=== PATIENT | female | born 1970 | race Caucasian/White ===

== ENCOUNTER 2024-09-17 10:26 | Day surgery (SDC) | payer OTHER, SELFPAY ==
[2024-09-16 08:28] VITALS: BMI 24.9
[2024-09-17] VITALS (13 sets, daily range): BP systolic 112–159; BP diastolic 69–92; BMI 25.0
[2024-09-17 13:54] LABS: ACT-LR - POC 285 Seconds (116-155)
[2024-09-17 14:13] LABS: ACT-LR - POC 351 Seconds (116-155)
--- NOTE | 2024-09-17 14:27 | ITS.CL.ABL ---
Addendum entered and electronically signed by Salvatore Abraham MD 09/18/24 10:08:
Date of procedure was September 17, 2024
Original Note:
Slot Operations Director - Ablation
Ablation
Procedure Report:
ELECTROPHYSIOLOGY ABLATION STUDY
DATE:: September 18, 2024�����������������������������REFERRING:
INDICATION: Paroxysmal supraventricular tachycardia in the form of atrial fibrillation.� Refractory to flecainide
HISTORY: See H and P.� As above
ANTIARRHYTHMIC DRUG: Flecainide
PRE-PROCEDURE JAIRON: No intracardiac thrombus on intracardiac ultrasound
PRESENTING RHYTHM: Spontaneous paroxysmal atrial fibrillation from the left pulmonary vein jaden with majority sinus rhythm
'TIME-OUT':��called and confirmed.
SEDATION/ANESTHESIA:��provided via the anesthesia department using general anesthesia (LMA).
INTRAVENOUS/ARTERIAL ACCESS:
Right femoral venous - 8Fr
Left femoral venous - 8 Fr, 6 Fr
Ultrasound guidance for bilateral femoral vein access was utilized by me to obtain access with demonstration of normal anatomy
CHADS-VASC Score:
HAS-Bled Score
PROCEDURE:
1.��A decapolar CS catheter was placed within the CS for mapping and pacing.��This was also used as the reference catheter for the 3-D map.
2. The intracardiac ultrasound catheter was positioned in the RA to identify the FO for targeting of transseptal puncture, assist��in identification of the pulmonary vein ostia, monitoring pre and post ablation pulmonary vein flow velocities,
monitoring for 'bubble' formation during RF application as a sign of thermal injury,��and to monitor for pericardial effusion during mapping and ablation procedure.���Left atrial size, LV ejection fraction, and pulmonary vein flows were monitored
pre and post ablation procedure. The other valves were inspected and found to be free of significant regurgitation or stenosis.
3.��Half of the calculated heparin bolus was administered prior to the first transeptal puncture.��Transseptal puncture was performed to diagnose RA and LA pressure so that safety of LA mapping and ablation could be further assessed, and to access
the left atrium and pulmonary veins for mapping and ablation.��This entailed advancing an 17 Spanish wire sheath dilator system sheath with dilator into the superior vena cava and withdrawing both (monitoring intracardiac ultrasound, fluoroscopy and
tip pressure) with the tip oriented toward the atrial septum.��The fossa ovalis was engaged (indicated by sudden displacement of the sheath tip as well as tenting of the fossa seen on intracardiac ultrasound).��Left atrial access required a pass
with the [place] needle extended.��Left atrial catheter position was confirmed by pressure monitoring (RA mean pressure 8 mm Hg and LA mean presure 14 mm Hg), LA saturation (99%),��as well as fluoroscopy.��The sheath was advanced over the
dilator and positioned in the left atrium.��The remainder of the calculated heparin bolus was administered and heparin was
infused to maintain ACT at 300 -350 seconds throughout the case.
4.��RA pacing was performed via the proximal decapolar poles and LA pacing was performed via the distal decapolr poles.
5. A quadrapolar catheter was first positioned at the His position for His Bundle recording which was tagged via the 3-D Navex sytem, and then passed to the RVA for RV pacing and recording.
6. The multipolar catheter and the PFA catheter placed in each of the LIPV, LSPV, RSPV and the RIPV.��Large left common ostium with a recessed and distal jaden
7.��Next, a 3-D map was created using Navex.���A 3-D reconstructed CT image was compared to the 3-D Navex map to assist in anatomic interpretation, mapping and ablation.��The CT image and the NavX image were fused.
8. 51 lesions were given in the [place] and basket poses to the common ostium of the left and individual rights and flower poses to the roof posterior wall and floor of the left atrium. This rendered the pulmonary veins isolated left atrial
posterior wall isolated. No further atrial fibrillation was noted and we gave additional lesions to the posterior jaden of the left common ostium which was the trigger location for atrial fibrillation.
9. Normal sinus node and AV tonja function noted.
TOTAL FLOURO TIME: 14.2 minutes 41.9 mGy
TOTAL RF DURATION: 0 minutes
REVERSAL OF HEPARIN: 35 mg of protamine, slow IV administration
COMPLICATIONS:
None
Intracardiac US shows no pericardial effusion post ablation.
SUMMARY:��
Complex left atrial mapping and ablation.
Isolation of left atrial posterior wall and pulmonary veins as above. Preablation the patient had a trigger for atrial fibrillation from the posterior jaden of the left common ostium.
RECOMMENDATIONS:
1. Ambulate in 4 hours and consider same-day discharge
2. Resume anticoagulation.
3.� Discontinue flecainide
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
Copy to: Fabien Abraham
--- NOTE | 2024-09-17 17:25 | W.PN.UPDATE ---
Update Note
Progress Note Update
Pt seen post PFA. Bilat groin sites without ht/bleeding, non tender. Post EKG NSR 80s, no acute changes. Resume Xarelto tonight and instructed to change timing to dinner/evening time moving forward. Will discontinue flecainide. Followup w/Dr. Quintanilla
as scheduled. Home later today if groin sites/tele remain stable.
== END 2024-09-17 19:30 | disposition home or self-care (01) ==
LOC: CATH 10:26
PROVIDERS: ATTENDING PHYSICIAN Internal Medicine Cardiovascular Disease; FAMILY PHYSICIAN Family Medicine; OTHER PHYSICIAN Internal Medicine Cardiovascular Disease
DX: E03.9 Hypothyroidism, unspecified (principal); I10 Essential (primary) hypertension; M81.0 Age-related osteoporosis without current pathological fracture; I48.0 Paroxysmal atrial fibrillation; Z85.820 Personal history of malignant melanoma of skin; Z79.890 Hormone replacement therapy; Z79.01 Long term (current) use of anticoagulants; Z79.624 Long term (current) use of inhibitors of nucleotide synthesis; Z79.899 Other long term (current) drug therapy; R00.2 Palpitations; R07.9 Chest pain, unspecified; R06.02 Shortness of breath; R53.83 Other fatigue; F17.200 Nicotine dependence, unspecified, uncomplicated; I47.19 Other supraventricular tachycardia
CPT/HCPCS: C1730; C1894; C1732; C1892; C1759; 76937; 85347; 86900; 86901; 93005; 93656; 93657; C1733; C1766